=== PATIENT | male | born 1950 | race Caucasian/White ===

== ENCOUNTER 2024-07-23 15:16 | Outpatient (CLI) | payer OTHER | END 2024-07-23 23:59 | disposition home or self-care (01) | LOC: RAD 15:16 | PROVIDERS: ATTEND Specialist | DX: S53.11 Anterior subluxation and dislocation of ulnohumeral joint (principal); M19.012 Primary osteoarthritis, left shoulder; M75.102 Unspecified rotator cuff tear or rupture of left shoulder, not specified as traumatic; M25.412 Effusion, left shoulder; M25.512 Pain in left shoulder; X58.XXXA Exposure to other specified factors, initial encounter; Y93.89 Activity, other specified; Y92.89 Other specified places as the place of occurrence of the external cause; Y99.8 Other external cause status | CPT/HCPCS: 73200 ==